=== PATIENT | male | born 1965 | race Caucasian/White ===

== ENCOUNTER 2017-12-12 08:11 | Inpatient (IN) | payer OTHER ==
[~2017-12-12] VITALS: Ht 177.8 cm; Wt 100.7 kg
[~2017-12-12 08:11] MED LIST: ASPIRIN EC81 MG PO; ATORVASTATIN CA20 MG PO; PLAVIX75 MG PO; WELLBUTRIN XL300 MG PO
[2017-12-12] MEDS ORDERED: NITROGLYCERIN 2% OINT 1 GM PKT TOP STA (08:45)
--- NOTE | 2017-12-12 09:09 | Diagnostic Imaging Report ---
PROCEDURE: Frontal and lateral views of the chest. COMPARISON: None available. INDICATIONS: CHEST PAIN FINDINGS: Lines/tubes: None. Lungs: The lungs are well inflated and clear. There is no evidence of pneumonia or pulmonary edema. Pleura: There is no pleural effusion or pneumothorax. Heart and mediastinum: The heart and the mediastinum are normal. Bones: No acute bony abnormality. IMPRESSION: No acute radiographic abnormality. Dictated by: Terence Velazquez M.D. on 12/12/2017 at 9:08 Electronically approved by: Terence Velazquez M.D. on 12/12/2017 at 9:08
[2017-12-12 09:44] LABS: BASOPHILS # (AUTO) 0.1 (0.0-0.1); BASOPHILS % 1.6 % (0.0-1.0); EOSINOPHILS # (AUTO) 0.1 (0.0-0.4); EOSINOPHILS % 2.9 % (0.0-6.0); HEMATOCRIT 45.3 % (38.2-49.6); LYMPHOCYTES # (AUTO) 1.4 (1.0-3.2); LYMPHOCYTES % 31.3 % (18.0-39.1); MEAN CORPUSCULAR HEMOGLOBIN 30.7 pg (28-32); MEAN CORPUSCULAR HGB CONC 35.3 g/dL (31-35); MEAN CORPUSCULAR VOLUME 86.9 fL (81-99); MONOCYTES # (AUTO) 0.4 (0.2-0.8); MONOCYTES % 8.9 % (4.4-11.3); NEUTROPHILS # (AUTO) 2.5 (2.1-6.9); NEUTROPHILS % 54.9 % (38.7-80.0); PLATELET COUNT 195 x10e3/uL (140-360); RED BLOOD COUNT 5.21 x10e6/uL (4.3-5.7); RED CELL DISTRIBUTION WIDTH 13.3 % (11.7-14.4)
[2017-12-12 10:12] LABS: INR 1.01; PROTHROMBIN TIME 12.5 seconds (11.9-14.5)
[2017-12-12 10:13] LABS: PARTIAL THROMBOPLASTIN TIME 27.9 seconds (23.8-35.5)
[2017-12-12 10:14] LABS: ALANINE AMINOTRANSFERASE 62 IU/L (0-55); ALBUMIN 4.1 g/dL (3.5-5.0); ALBUMIN/GLOBULIN RATIO 1.1 (0.8-2.0); ALKALINE PHOSPHATASE 116 IU/L (40-150); BLOOD UREA NITROGEN 18 mg/dL (7-26); BUN/CREATININE RATIO 19 (6-25); CALCIUM 8.6 mg/dL (8.4-10.2); CARBON DIOXIDE 22 mmol/L (22-29); CHLORIDE 107 mmol/L (98-107); CREATINE KINASE 208 IU/L (30-200); CREATININE, SERUM 0.95 mg/dL (0.72-1.25); EST GLOMERULAR FILTRATION RATE > 60 ML/MIN (60-); GLUCOSE 89 mg/dL (74-118); SODIUM 140 mmol/L (136-145)
[2017-12-12 10:23] LABS: BILIRUBIN,URINE NEGATIVE (NEGATIVE); KETONES,URINE NEGATIVE (NEGATIVE); LEUKOCYTE ESTERASE ,URINE NEGATIVE (NEGATIVE); NITRITE,URINE NEGATIVE (NEGATIVE); PROTEIN,URINE DIPSTICK NEGATIVE (NEGATIVE); URINE UROBILINOGEN 0.2 mg/dL (0.2 - 1)
[2017-12-12 10:28] LABS: CLARITY,URINE CLEAR (CLEAR); COLOR,URINE YELLOW (YELLOW)
[2017-12-12 10:41] LABS: EPITHELIAL CELLS,URINE RARE /LPF
[2017-12-12] MEDS ORDERED: NITROGLYCERIN 0.4 MG SUBL SL PRN (10:45)
[2017-12-12] MEDS ORDERED: ONDANSETRON HCL INJ 2 MG/ML VIAL IV PRN ×2 (10:45→14:15)
[2017-12-12] MEDS ORDERED: ASPIRIN 81 MG CHEW TAB PO ONE (10:45)
[2017-12-12] MEDS ORDERED: CLOPIDOGREL BISULFATE 75 MG TAB PO ONE (11:15)
[2017-12-12] MEDS: FAMOTIDINE 20 MG TAB PO SCH ×2 (11:21→21:24)
[2017-12-12] MEDS ORDERED: SODIUM CHLORIDE 0.9% 1000ML 1,000 ML IV SCH (11:45)
[2017-12-12] MEDS ORDERED: NITROGLYCERIN 2% OINT 1 GM PKT TOP SCH (12:00)
[2017-12-12 12:04] LABS: CREATINE KINASE MB 1.3 ng/mL (0-5.0)
[2017-12-12] MEDS ORDERED: LIDOCAINE HCL 2% LOCAL 20 ML VIAL PRN (12:12)
[2017-12-12] MEDS ORDERED: HEPARIN SOD/SOD CHLORIDE 2,000 ML PRN (12:12)
[2017-12-12] MEDS ORDERED: IOPAMIDOL 370 MG/ML 200 ML INFUS..BTL INJ PRN (12:12)
--- OUTSIDE RECORDS SUMMARY | 2017-12-12 12:37 | XMS REPORT ---
Author Author [facility] Address Unknown Phone Unavailable Care Team Providers Care High School Math Teacher Name Role Phone ANSLEY ZAMARRIPA Unavailable Unavailable Problems This patient has no known problems. Allergies, Adverse Reactions, Alerts This patient has no known allergies or adverse reactions. Medications This patient has no known medications. Results Test Description Test Time Test Comments Text Results Atomic Results Result Comments CHEST 2 VIEWS [place] [address] Patient Name: MERY LOWERY MR #: [id number] : 1965 Age/Sex: 52/M Req #: [id number] Adm Physician: Ordered by: ANSLEY ZAMARRIPA MD Report #: [id number] Location: ER Room/Bed: Procedure: [id number] DX/CHEST 2 VIEWS Exam Date: 12/12/17 Exam Time: 08 REPORT STATUS: Signed PROCEDURE: Frontal and lateral views of the chest. COMPARISON: None available. INDICATIONS: CHEST PAIN FINDINGS: Lines/tubes: None. Lungs: The lungs are well inflated and clear. There is no evidence of pneumonia or pulmonary edema. Pleura: There is no pleural effusion or pneumothorax. Heart and mediastinum: The heart and the mediastinum are normal. Bones: No acute bony abnormality. IMPRESSION: No acute radiographic abnormality. Dictated by: Hal Emery M.D. on 12/12/2017 at 9:08 Electronically approved by: Hal Emery M.D. on 12/12/2017 at 9:08 Dictated By : HAL EMERY MD 7 Transcribed By: ASCENCION on 12/12/17907 COPY TO: ANSLEY ZAMARRIPA MD
--- NOTE | 2017-12-12 12:41 | Consultation ---
DATE OF CONSULTATION: December 12, 2017 CARDIAC CONSULTATION REASON FOR CONSULTATION: Urgent consultation in a patient with repeated severe chest pain. HISTORY: This is a 52-year-old gentleman who is known with hypertension controlled by exercise and diet, coronary artery disease status post PCI of the LAD in 2012, hypercholesterolemia with INTOLERANCE TO ALL STATIN. Patient was in his usual status of health. He came to the emergency room because yesterday had 3 episodes of severe retrosternal chest pain radiating to his neck, to his back, to his arm, associated with diaphoresis. He thought probably he was having some problem there, but he said he was busy; so, he did not come to the emergency room. Today, this morning, he had another episode which is more severe, retrosternal and radiating to the back, associated with diaphoresis, radiating to his neck, and patient almost passed out. He came to the emergency room. His EKG showed nonspecific ST changes. First set of cardiac enzymes is normal. Urgent cardiac consultation is obtained. REVIEW OF SYSTEMS: CARDIAC: As per acute illness. PULMONARY: No cough. No hemoptysis. GI: No hematemesis. No melena. : No hematuria. No dysuria. NEUROMUSCULAR: No aches. No pain. NEUROLOGICAL: No headache. No seizure. HEMATOLOGICAL: No easy bruising. No bleeding. SOCIAL HISTORY: He lives by himself. He does not smoke. He is social alcohol drinker. He is a design engineering technician. CURRENT MEDICATION: Includes Plavix 75 mg a day. ALLERGIES: HE IS INTOLERANT TO ALL STATIN. PAST MEDICAL HISTORY: 1. Coronary artery disease, PCI of the LAD using a 2.75 x 22 stent finished with 3.25 noncompliant balloon. 2. Hypertension. 3. Left knee ACL repair. 4. Right Achilles tendon surgery. 5. Left shoulder tear surgery. FAMILY HISTORY: Father known with coronary artery disease, prior myocardial infarction and stents. Mother diabetic. One brother, one son, and both of them are healthy. PHYSICAL EXAMINATION: VITALS: Height of 5 feet 10 inches. Weight of 220 pounds. Blood pressure 130/70. Heart rate of 50. Respiratory rate of 18. HEENT: Pupils are equal, reactive. NECK: No elevation of jugular venous pulsation. No bruit. CHEST: Clear to auscultation and percussion. HEART: PMI 5th left intercostal space on 1st and 2nd heart sounds. ABDOMEN: Soft with good bowel sounds. No organomegaly. No abdominal bruits. EXTREMITIES: No cyanosis. No clubbing. No edema. NEUROLOGIC: No neurological deficits. LABORATORY DATA: EKG showing sinus bradycardia, RSR, in V1 nonspecific ST-T changes. First set of cardiac enzymes is normal. Sodium of 140. Potassium of 4. BUN of 18. Creatinine of 0.9. White blood cell count of 4.5. Hemoglobin of 16. Hematocrit is 45%. Platelet count of 195,000. IMPRESSION AND PLAN: 1. Acute coronary syndrome, impending myocardial infarction, in very unstable fashion in a patient with known coronary artery disease status post percutaneous coronary intervention. 2. Hypertension, on no medication, seems to be controlled with conservative approach. 3. Hypercholesterolemia, with INTOLERANCE TO STATIN. Will check another set of cardiac enzymes. Because of unstable nature of his symptoms, patient will be rushed to the cardiac wood preserving plant laborer for cardiac catheterization with possible intervention procedure. Risks, benefits, alternatives are discussed and explained. Job#: [id number] EV
[2017-12-12] MEDS ORDERED: FENTANYL CITRATE/PF 100MCG/2 ML INJ PRN (12:42)
[2017-12-12] MEDS ORDERED: MIDAZOLAM HCL 2 MG/2 ML VIAL PRN (12:42)
[2017-12-12] MEDS ORDERED: SODIUM CHLORIDE 0.9% 1000ML 1,000 ML PRN (12:42)
[2017-12-12] MEDS ORDERED: BIVALIRUDIN 250 MG/VIAL IV PRN (13:25)
[2017-12-12] MEDS ORDERED: SODIUM CHLORIDE 0.9% 50ML 50 ML PRN (13:26)
[2017-12-12] MEDS ORDERED: CLOPIDOGREL BISULFATE 75 MG TAB PRN (13:32)
[2017-12-12] MEDS ORDERED: ACETAMINOPHEN 325 MG TAB PO PRN (14:15)
[2017-12-12] MEDS ORDERED: HYDROCODONE/APAP 5MG-325MG TAB PO PRN (14:15)
--- NOTE | 2017-12-12 15:39 | Operative Report ---
DATE OF PROCEDURE: December 12, 2017 TITLE OF REPORT: Cardiac catheterization. INDICATIONS FOR STUDY: This is a 52-year-old gentleman with a history of hypertension, hypercholesterolemia, coronary artery disease with prior history of LAD stenting, who presents to this institution with chest pain typical of angina that is occurring at rest. It started today and was suggestive of paroxysmal angina pectoris. DESCRIPTION OF PROCEDURE: After risks, benefits, pros and cons of today's procedure were explained, the patient agreed to proceed. The patient was brought to the cardiac catheterization laboratory where the right groin was prepped and draped in the usual sterile fashion. One percent lidocaine solution was used to numb the right groin region. Access in the right femoral artery was obtained, and a 4-Bahraini femoral sheath was placed. Selective coronary angiography of the tribe left and right coronaries was performed with JL4 and 3DRC diagnostic catheters respectively. A 4-Bahraini angled pigtail catheter was placed in the ventricle for ventriculography and hemodynamic assessment of ventricular filling pressures. After noting severe branch disease in a mid-marginal branch that appeared to be high-grade stenosis, we decided to proceed with intervention. The 4-Bahraini femoral sheath was upsized to a 6-Bahraini femoral sheath. We took a 6-Bahraini XB LAD 3.5 guiding catheter and selected the left main coronary ostia. The Angiomax was given first for systemic anticoagulation. Utilizing a 0.014 [place] Flex guidewire, we were able to successfully place the wire into the mid marginal branch, which appears to be the OM-2 branch, which had the 95% ostial stenosis. We predilated the lesion with an Emerge 2.0 x 12 mm balloon deployed at 10 atmospheres of pressure. We then took a Synergy 2.25 x 12 mm drug-eluting stent and deployed that up to 12 atmospheres of pressure. Final angiography revealed zero percent residual stenosis, ADILENE-3 flow, and no complications. At the conclusion of the case, the guiding catheter was removed with a J wire. Then a femoral angiogram was performed revealing femoral artery stick. A 6-Bahraini Angio-Seal closure device was successfully deployed achieving hemostasis. COMPLICATIONS: None. ESTIMATED BLOOD LOSS: None. FINDINGS 1. The left main is very short and gives rise to an LAD and circumflex branch. 2. The mid-LAD has a previously placed stent in the proximal to the mid aspect of the vessel covering the origin of the 1st diagonal branch bifurcation. The diagonal branch has an 80% to 90% mid-body stenosis, and this vessel is about 2 mm in diameter. The remainder of this vessel is angiographically normal. 3. The left circumflex is large and dominant. It gives rise to a small anterolateral marginal branch with mild luminal irregularities. There is a 95% OM-2 branch, which is moderate in caliber. Then there is a larger posterolateral marginal branch which is largely angiographically normal followed by 30% disease in the distal circumflex as it wraps around the AV groove followed by several more posterolateral marginal branches and terminates into a moderate caliber left PDA. 4. The RCA is a small and nondominant vessel. 5. Left ventricular ejection fraction is 65% with normal wall motion. Diastolic pressure is 12 mmHg. There is no significant LV to aortic pullback gradient. INTERVENTION SUMMARY: Successful treatment of the 95% ostial OM-2 lesion with implantation of a Synergy 2.25 x 12 mm drug-eluting stent resulting in zero percent residual stenosis, ADILENE-3 flow and no complications. PLAN/RECOMMENDATIONS 1. Aspirin and Plavix therapy. 2. Statin therapy. 3. Aggressive risk factor modification and medical therapy. 4. Overnight observation. If the patient is doing well, likely discharge home by tomorrow. Job#: [id number] ALICIA
[2017-12-12] MEDS: SODIUM CHLORIDE 0.9% 1000ML 1,000 ML IV SCH (15:40)
[2017-12-12 16:33] VITALS: BP 141/94
[2017-12-12 16:48] VITALS: BP 141/94
[2017-12-12] MEDS: METOPROLOL TARTRATE 25 MG TAB PO SCH (18:08)
[2017-12-12 20:00] VITALS: BP 155/101
[2017-12-12 20:11] LABS: CREATINE KINASE MB 1.3 ng/mL (0-5.0)
[2017-12-12] MEDS ORDERED: ATORVASTATIN 20 MG TAB PO SCH (21:00)
[2017-12-12] MEDS ORDERED: ZOLPIDEM TARTRATE 5 MG TAB PO PRN (21:00)
[2017-12-13] VITALS: BP 146/85
[2017-12-13 00:38] VITALS: BP 146/85
[2017-12-13] MEDS: SODIUM CHLORIDE 0.9% 1000ML 1,000 ML IV SCH ×2 (01:04→01:05)
[2017-12-13 04:00] VITALS: BP 145/77
[2017-12-13 06:02] LABS: BASOPHILS # (AUTO) 0.1 (0.0-0.1); BASOPHILS % 1.1 % (0.0-1.0); EOSINOPHILS # (AUTO) 0.2 (0.0-0.4); EOSINOPHILS % 3.3 % (0.0-6.0); HEMATOCRIT 44.5 % (38.2-49.6); HEMOGLOBIN 15.8 g/dL (14.0-18.0); LYMPHOCYTES # (AUTO) 1.5 (1.0-3.2); LYMPHOCYTES % 22.8 % (18.0-39.1); MEAN CORPUSCULAR HEMOGLOBIN 30.3 pg (28-32); MEAN CORPUSCULAR HGB CONC 35.5 g/dL (31-35); MEAN CORPUSCULAR VOLUME 85.2 fL (81-99); MONOCYTES # (AUTO) 0.5 (0.2-0.8); MONOCYTES % 7.3 % (4.4-11.3); NEUTROPHILS # (AUTO) 4.3 (2.1-6.9); NEUTROPHILS % 65.2 % (38.7-80.0); PLATELET COUNT 175 x10e3/uL (140-360); RED BLOOD COUNT 5.22 x10e6/uL (4.3-5.7)
[2017-12-13 06:24] LABS: ALANINE AMINOTRANSFERASE 55 IU/L (0-55); ALBUMIN 3.7 g/dL (3.5-5.0); ALKALINE PHOSPHATASE 82 IU/L (40-150); ANION GAP 12.9 mmol/L (8-16); BLOOD UREA NITROGEN 15 mg/dL (7-26); BUN/CREATININE RATIO 15 (6-25); CALCIUM 8.5 mg/dL (8.4-10.2); CARBON DIOXIDE 22 mmol/L (22-29); CHLORIDE 108 mmol/L (98-107); CHOL/HDL RATIO 7.7 (3.9-4.7); CHOLESTEROL 268 MD/DL (0-199); EST GLOMERULAR FILTRATION RATE > 60 ML/MIN (60-); GLUCOSE 92 mg/dL (74-118); HDL CHOLESTEROL 35 MG/DL (40-60); POTASSIUM 3.9 mmol/L (3.5-5.1); SODIUM 139 mmol/L (136-145); TRIGLYCERIDES 433 MG/DL (0-149)
[2017-12-13 08:00] VITALS: BP 150/88
[2017-12-13] MEDS ORDERED: ASPIRIN 325 MG TAB PO SCH (09:00)
[2017-12-13] MEDS ORDERED: CLOPIDOGREL BISULFATE 75 MG TAB PO SCH (09:00)
[2017-12-13] MEDS ORDERED: ASPIRIN 81 MG ENTERIC COATED PO SCH (09:00)
[2017-12-13] MEDS: METOPROLOL TARTRATE 25 MG TAB PO SCH (09:38)
[2017-12-13] MEDS: FAMOTIDINE 20 MG TAB PO SCH (09:38)
== END 2017-12-13 13:16 | disposition left against medical advice (07) | DRG 247 ==
LOC: ER 08:18 → CATH LAB 12:35 → MED/SURG2 14:45
PROVIDERS: ADMIT Internal Medicine; ATTEND Internal Medicine
PROC: 027034Z Dilation of Coronary Artery, One Artery with Drug-eluting Intraluminal Device, Percutaneous Approach (ICD-10-PCS; principal; 2017-12-12)
PROC: 4A023N7 Measurement of Cardiac Sampling and Pressure, Left Heart, Percutaneous Approach (ICD-10-PCS; 2017-12-12)
PROC: B2111ZZ Fluoroscopy of Multiple Coronary Arteries using Low Osmolar Contrast (ICD-10-PCS; 2017-12-12)
PROC: B2151ZZ Fluoroscopy of Left Heart using Low Osmolar Contrast (ICD-10-PCS; 2017-12-12)
DX: I25.110 Atherosclerotic heart disease of native coronary artery with unstable angina pectoris (principal); I10 Essential (primary) hypertension; E78.5 Hyperlipidemia, unspecified; F41.9 Anxiety disorder, unspecified; Z95.5 Presence of coronary angioplasty implant and graft; Z28.21 Immunization not carried out because of patient refusal; Z79.82 Long term (current) use of aspirin; Z79.02 Long term (current) use of antithrombotics/antiplatelets
CPT/HCPCS: 36140; 36415; 71046; 77002; 80053; 80061; 81001; 82550; 82553; 83036; 84484; 85025; 85610; 85730; 87086; 92920; 93005; 93452; 93458; 99284; C1766; C9600; J0583; J2001; J2250; J7030; Q9967

== ENCOUNTER 2019-05-08 11:05 | Observation (INO) | payer OTHER ==
[~2019-05-08] VITALS: Ht 177.8 cm; Wt 136.1 kg
--- OUTSIDE RECORDS SUMMARY | 2019-05-08 11:08 | XMS REPORT | Clinical Summary ---
Author Author [facility] Address Unknown Phone Unavailable Care Team Providers Care Policy Intern Name Role Phone Armando Juarez MD PCP Allergies No Known Allergies Medications End Date Status Medication Sig Dispensed Refills Start Date Active buPROPion XL (WELLBUTRIN Take 300 mg 0 XL) 300 MG 24 hr tablet by mouth every morning. Active clopidogrel (PLAVIX) 75 Take 75 mg by 0 mg tablet mouth every morning. Active sertraline (ZOLOFT) 100 Take 200 mg 0 MG tablet by mouth every morning. Active Problems Problem Noted Date Depression 01/28/2018 Dyslipidemia 01/28/2018 Hypertriglyceridemia 01/28/2018 Chest pain 01/15/2018 Social History Date Tobacco Use Types Packs/Day Years Used Never Smoker Smokeless Tobacco: Never Used Alcohol Use Drinks/Week oz/Week Comments Yes 3/7 days per week Sex Assigned at Date Recorded Not on file Industry Job Start Date Occupation Not on file Not on file Not on file Travel End Travel History Travel Start No recent travel history available. Last Filed Vital Signs Not on file Plan of Treatment Health Maintenance Due Date Last Done Comments COLONOSCOPY SCREENING 2014 SHINGLES VACCINES (#1) 2014 INFLUENZA VACCINE 05/23/2019 Results Not on fileafter 05/07/2018 Insurance Type Payer Benefit Subscriber ID Effective Phone Address Plan / Dates Group HMO AETNA AETNA xxxxxxxxxx 2000- HMO,POS,EP Present O, MC/EC Advance Directives Patient has advance care planning documents on file. For more information, pleas e contact: Jesus Rea [address] [facility] [place] [address]
[2019-05-08 11:24] LABS: BASOPHILS # (AUTO) 0.1 (0.0-0.1); EOSINOPHILS # (AUTO) 0.1 (0.0-0.4); EOSINOPHILS % 2.9 % (0.0-6.0); HEMATOCRIT 45.3 % (38.2-49.6); HEMOGLOBIN 15.9 g/dL (14.0-18.0); LYMPHOCYTES # (AUTO) 1.6 (1.0-3.2); MEAN CORPUSCULAR HEMOGLOBIN 30.6 pg (28-32); MEAN CORPUSCULAR HGB CONC 35.1 g/dL (31-35); MEAN CORPUSCULAR VOLUME 87.1 fL (81-99); MONOCYTES # (AUTO) 0.3 (0.2-0.8); MONOCYTES % 6.9 % (4.4-11.3); NEUTROPHILS # (AUTO) 2.3 (2.1-6.9); NEUTROPHILS % 51.8 % (38.7-80.0); PLATELET COUNT 184 x10e3/uL (140-360); RED CELL DISTRIBUTION WIDTH 13.2 % (11.7-14.4)
[2019-05-08] MEDS ORDERED: ASPIRIN 81 MG CHEW TAB PO ONE ×2 (11:30→12:30)
[2019-05-08 11:37] LABS: INR 0.86; PROTHROMBIN TIME 12.2 seconds (11.9-14.5)
[2019-05-08 11:38] LABS: PARTIAL THROMBOPLASTIN TIME 28.8 seconds (23.8-35.5)
[2019-05-08 11:45] LABS: ALANINE AMINOTRANSFERASE 64 IU/L (0-55); ALBUMIN/GLOBULIN RATIO 1.1 (0.8-2.0); ALKALINE PHOSPHATASE 97 IU/L (40-150); BLOOD UREA NITROGEN 16 mg/dL (7-26); BUN/CREATININE RATIO 20 (6-25); CALCIUM 8.8 mg/dL (8.4-10.2); CARBON DIOXIDE 22 mmol/L (22-29); CHLORIDE 106 mmol/L (98-107); CREATINE KINASE 159 IU/L (30-200); EST GLOMERULAR FILTRATION RATE > 60 ML/MIN (60-); GLUCOSE 86 mg/dL (74-118); MAGNESIUM 2.3 MG/DL (1.3-2.1); SODIUM 139 mmol/L (136-145)
--- NOTE | 2019-05-08 13:25 | Diagnostic Imaging Report ---
EXAMINATION: CHEST 2 VIEWS INDICATION: Chest pain. ^chest pain ^[id number] ^1145 ^Y COMPARISON: None FINDINGS: TUBES and LINES: None. LUNGS: Lungs are well inflated. Lungs are clear. There is no evidence of pneumonia or pulmonary edema. PLEURA: No pleural effusion or pneumothorax. HEART AND MEDIASTINUM: The cardiomediastinal silhouette is unremarkable. BONES AND SOFT TISSUES: No acute osseous lesion. Soft tissues are unremarkable. UPPER ABDOMEN: No free air under the diaphragm. IMPRESSION: No acute thoracic abnormality. Signed by: Dr. Samson Figueroa M.D. on 05/08/2019 1:22 PM
--- OUTSIDE RECORDS SUMMARY | 2019-05-08 13:27 | XMS REPORT | Clinical Summary ---
Author Author [facility] Address Unknown Phone Unavailable Care Team Providers Care Construction Director Name Role Phone Armando Juarez MD PCP [...] more information, pleas e contact: Jesus Rea [phone] [facility] [place] [address]
[2019-05-08] MEDS ORDERED: SODIUM CHLORIDE 0.9% 1000ML 1,000 ML IV SCH ×2 (13:50→18:34)
--- NOTE | 2019-05-08 14:04 | NUR ---
report called to SHELIA Cartwright
[2019-05-08 14:40] VITALS: BP 148/91
--- NOTE | 2019-05-08 14:40 | NUR ---
PATIENT RECEIVED FROM ER PER STRETCHER. ALERT AND ORIENTED X 3. SKIN WARM AND DRY TO TOUCH, RESPIRATION EVEN AND UNLABORED. DENIED CHEST PAIN AT THIS TIME. ABDOMEN SOFT AND NON DISTENDED, LAST BM TODAY. TELEMETRY BOX [address], YELLOW SOCKS APPLIED. PATIENT ORIENTED TO SURROUNDINGS. BED IN LOWER POSITION, CALL LIGHT AT REACH. INSTRUCTED TO CALL FOR ASSISTANCE NEEDED.
[2019-05-08] MEDS ORDERED: VERAPAMIL HCL 2.5 MG/ML 2 ML VIAL ONE (16:05)
[2019-05-08] MEDS ORDERED: HEPARIN SOD (PORCINE) 1000 UNIT/ML 30ML ONE (16:05)
[2019-05-08] MEDS ORDERED: HEPARIN SOD/SOD CHLORIDE 2,000 ML ONE (16:06)
[2019-05-08] MEDS ORDERED: MIDAZOLAM HCL 2 MG/2 ML VIAL ONE (16:06)
[2019-05-08] MEDS ORDERED: FENTANYL CITRATE/PF 100MCG/2 ML INJ ONE (16:06)
[2019-05-08] MEDS ORDERED: LIDOCAINE HCL 2% LOCAL 20 ML VIAL ONE ×2 (16:06→17:49)
[2019-05-08] MEDS ORDERED: SODIUM CHLORIDE 0.9% 1000ML 1,000 ML ONE (16:07)
[2019-05-08] MEDS ORDERED: IOPAMIDOL 370 MG/ML 200 ML INFUS..BTL INJ ONE (16:07)
[2019-05-08] MEDS ORDERED: NITROGLYCERIN/D5W 200 MCG/ML 0 ML ONE (16:07)
--- NOTE | 2019-05-08 17:22 | NUR ---
PATIENT OFF UNIT TO INSPECTOR HOT FORGINGS.
[2019-05-08] MEDS ORDERED: SODIUM CHLORIDE 0.9% 50ML 0 ML ONE (17:55)
[2019-05-08] MEDS ORDERED: EPTIFIBATIDE 75mg 100ML 0 ML ONE (17:55)
[2019-05-08] MEDS ORDERED: BIVALRIUDIN 250 MG/VIAL VIAL IV ONE (17:55)
[2019-05-08] MEDS ORDERED: EPTIFIBATIDE 0 ML ONE (17:55)
--- NOTE | 2019-05-08 18:40 | NUR ---
Report provided to Chay RN, review of procedural findings and medications given. Patient drowsy, easily aroused. maintains airway and room air saturations of 98-99%. No gross issues of pressure, pain, pallor or dysrhythmia. IV site patent with NS 0.9% at KVO by dial-flow. patient hemodynamically stable with hemostasis left groin dressing CDI w/o s/s of bleeding. patient transferred to [facility] under own strength w/o incident. placed back on portable telemetry and transported to [address] [place] [address] procedure: Diagnostic LHC, left ventriculogram and coronary angiography Sheath puller: Sea RTr 20 min hold Meds Given Intra-Procedure Sedatives Versed - 2 mg Fentanyl - 50 mcg Fluids Input - 200 ml Output - dtv Contrast Isovue 370 - 90 ml Other Meds NA
--- NOTE | 2019-05-08 18:43 | NUR ---
PATIENT BACK TO UNIT FROM REVERSAL PRINT INSPECTOR. ALERT AND VERBALLY RESPONSIVE. DENIED PAIN AT THIS TIME. DRESSING DRY AND INTACT TO LEFT GROIN, NO HEMATOMA NOTED. PATIENT ABLE TO WIGGLE TOES. ON BED REST WITH LEG STRAIGHT TILL 2300. V/S 96.1-55-18-142/89 AND 96% ON RA. BED IN LOWER POSITION AND LOCKED, CALL LIGHT AT REACH.
[2019-05-08] MEDS ORDERED: MORPHINE SULFATE INJ 4 MG/ML INJ 1ML IV PRN (18:45)
[2019-05-08] MEDS ORDERED: ONDANSETRON HCL INJ 2MG/ML 2ML 2 MG/ML VIAL IV PRN (18:45)
[2019-05-08] MEDS ORDERED: ACETAMINOPHEN 325 MG TAB PO PRN (18:45)
[2019-05-08] MEDS ORDERED: HYDROCODONE/APAP 5MG-325MG TAB PO PRN (18:45)
[2019-05-08 19:15] VITALS: BP 140/86
--- NOTE | 2019-05-08 19:18 | NUR ---
PT IS RESTING IN BED. RESPIRATION IS EVEN AND UNLABORED, NO DISTRESS NOTED. BED IN THE LOWEST POSITION, LOCKED, AND CALL LIGHT WITHIN REACH. WILL CONTINUE TO MONITOR.
--- NOTE | 2019-05-08 19:22 | Operative Report ---
DATE OF PROCEDURE: 05/08/2019 SURGEON: Olayinka Manriquez MD PROCEDURES PERFORMED: 1. Left heart cardiac catheterization, coronary angiography. 2. Left ventriculography. INDICATION FOR STUDY: A 53-year-old gentleman, history of hypertension, hypercholesteremia, coronary artery disease with prior history of LAD, PCI and OM2 PCI in the remote past, presents to this institution with ongoing relentless chest pressure, tightness, heaviness. States similar to his previous ACS pain and concerning for unstable angina, class 4 symptoms. DESCRIPTION OF PROCEDURE: After risks, benefits, pros and cons of today's procedure explained, the patient agreed to proceed. The patient was brought to the cardiac catheterization laboratory in urgent basis, where the groins were prepped and draped in usual sterile fashion. A 1% lidocaine solution was used to numb the left groin region, access to the left femoral artery was obtained and a 4-Tamazight femoral sheath was placed. Selective coronary angiography of the cherokee left and right coronary artery was performed with JL4 and 3DRC diagnostic catheters respectively. Angled pigtail catheter was placed in the ventricle for ventriculography and hemodynamic assessment of ventricular filling pressures. After noting no clear-cut culprit lesion, and no critical disease or severe disease we decided to proceed with. We decided to conclude the case. The 4-Tamazight femoral sheath was removed and manual compression was applied achieving hemostasis. COMPLICATIONS: None. ESTIMATED BLOOD LOSS: Minimal. FINDINGS: 1. Left main is very short, angiographically normal, gives rise to an LAD and circumflex branch. 2. LAD has a proximal mid LAD stent that is patent jailing the 1st two diagonal branches. The 2nd diagonal branch was a 1.5 mm vessel, has an 80% mid stenosis. 3. Left circumflex artery is dominant, gives rise to several marginal branches. OM2 branch has a previously placed stent that is patent. However, in the ostial aspect of this vessel, there is a 40% stenosis. The OM3 branch is a large posterolateral marginal branch. There are two smaller posterolateral marginal branches and then the very distal aspect of the circumflex artery just as it enters the left PDA. There is a 50% stenosis. 4. The RCA is small, nondominant and is angiographically normal. 5. Left ventricular ejection fraction is 55% with end-diastolic pressure of 18 mmHg. There is no significant LV to aortic pullback gradient. PLAN/RECOMMENDATIONS: 1. Adjust aggressive risk factor modification medical therapy. 2. Six hour bedrest. 3. Overall, the patient's anatomy does not show any severe disease and readily amenable for PCI. We will just recommend medical therapy. MD TEN Armando/SOFIA /[id number]
--- NOTE | 2019-05-08 19:32 | Consultation ---
DATE OF CONSULTATION: 05/08/2019 REASON FOR CONSULTATION: Unstable angina. CHIEF COMPLAINT: Chest pain. HISTORY OF PRESENT ILLNESS: Mr. Baird is a 53-year-old gentleman with past medical history of hypertension, hypercholesteremia, coronary artery disease with prior history of LAD, PCI, and circumflex PCI as well with left dominant circulation. The patient was in his usual state of health up until a couple of days ago when he developed new onset of chest pain as he describes a substernal chest pressure sensation, [id number] in nature, it waxes and wanes, and is becoming more frequent over the last previous days. He endorses compliance with his anti-platelet therapy, but reports that he has been in and out of town working, and finally he is back in town and came to the emergency room for further care and management. He reports that the substernal chest pain radiates to his neck and he at times break down into a sweat. He reports that this pain quality is similar to what happened back in November 2017, where he ended up having his circumflex artery stented. In the emergency room, his 1st set of enzymes are negative. His EKG reveals T-wave inversions in the lateral leads. PAST MEDICAL HISTORY: 1. Hypercholesterolemia with statin intolerance. 2. Coronary artery disease with prior history of LAD, PCI, and circumflex PCI most recently in November 2012. PAST SURGICAL HISTORY: 1. History of left knee ACL repair. 2. History of right Achilles tendon surgery. 3. History of left shoulder tear surgery. FAMILY HISTORY: Father known with prior RI and coronary artery disease in his 60s. Mother diabetic. Otherwise, no other family history of coronary artery disease. SOCIAL HISTORY: He is a lifelong nonsmoker. Denies any alcohol or illicit drug use. He is a air technician. ALLERGIES: INTOLERANCE TO ALL STATINS. HOME MEDICATIONS: Only currently taking aspirin 81 mg daily and Plavix 75 mg daily, has refused to take beta-tha and again I talked about statin therapy and refused to take that medications. REVIEW OF SYSTEMS: GENERAL: Denies any fevers, chills, or any weight changes. HEENT : No headaches, visual complaints, sore throat, or stuffy nose. RESPIRATORY: Denies any pleuritic chest pain, has exertional dyspnea, that is relatively consistent with his chest pain symptoms. No cough. CARDIOVASCULAR: As per HPI. GI: Denies any abdominal pain, bright red blood per rectum, melena, or hematemesis. HEMATOLOGY: Positive for easy bruising. No bleeding. GI: Denies any abdominal pain. Positive for nausea. Denies any bright red blood per rectum, melena, or hematemesis. : Denies any dysuria, pyuria, or change in urinary frequency. MUSCULOSKELETAL: Has chronic back pain and some arthritic type issues. HEME: Positive for easy bruising. ID: No infectious issues. NEUROLOGIC: Denies any focal weakness, numbness, tingling, seizures, headache, history of TIA, or stroke. Remainder of review of systems negative, otherwise as mentioned. PHYSICAL EXAMINATION: VITAL SIGNS: Height of 70 inches, weight of 222 pounds, BMI is 31.9, temperature of 96.9, pulse of 58, respiratory rate 14, blood pressure 125/79, and O2 saturation 99% on room air. GENERAL: This is a well-nourished, well-developed gentleman, who is currently in no apparent distress. HEENT: Normocephalic, atraumatic. Pupils are equal, round, and reactive to light. Extraocular movements are intact. Oropharynx is clear. NECK: No elevation of jugular venous pulsation. No carotid bruits. CARDIOVASCULAR: Regular rate and rhythm. Normal S1, S2. Soft 1/6 systolic murmur at the left lower sternal border. LUNGS: Largely clear to auscultation bilaterally. ABDOMEN: Soft, nontender, nondistended. Normoactive bowel sounds. No hepatosplenomegaly. BACK: No costovertebral angle tenderness. EXTREMITIES: Warm with 1 to 2+ bilateral femoral pulses, 1+ pedal pulses. No edema. NEUROLOGIC: He is alert and oriented x3. Cranial nerves II through XII are intact. Strength is 5/5. Grossly nonfocal. PSYCH: Normal fluent speech. Appropriate affect. No anxiety or delusions. LABORATORY DATA: White count of 4.5, hemoglobin 15.9, hematocrit of 45.3, and platelets of 184. Sodium 139, potassium 4, chloride 106, bicarb 22, BUN 16, creatinine 0.8, glucose of 86, calcium of 8.8, AST 33, ALT 64, alkaline phosphatase 97, total protein of 7.5, albumin of 4.0. BNP is 19. Troponin is 0.003. EKG reveals sinus rhythm. T-wave inversion in the lateral precordial leads. DIAGNOSES: 1. Coronary artery disease with escalating chest pain symptoms concerning for unstable angina pectoris and gentleman who has a known PCI to the LAD and circumflex arteries and has a left dominant circulation. 2. Hypercholesteremia with statin intolerance. 3. Prior history of stenting to coronary artery disease as above. PLAN AND RECOMMENDATIONS: 1. From a cardiovascular standpoint, we had a long discussion with the patient in terms of differential diagnosis, etc. He is adamant this is similar to his typical angina pain and is requesting a repeat heart catheterization, which seems reasonable given lack of good alternative diagnosis. 2. The patient understands the cardiac catheterization risks, benefits, and agrees to proceed. 3. We will continue dual anti-platelet therapy. 4. We will continue to follow and monitor this patient. MD TEN Armando/SOFIA /[id number]
[2019-05-08 20:00] VITALS: BP 140/86
[2019-05-08] MEDS: ATORVASTATIN 20 MG TAB PO SCH ×2 (21:00→21:09)
[2019-05-08] MEDS: PANTOPRAZOLE SOD 40 MG TABEC PO SCH (21:09)
[2019-05-08] MEDS: METOCLOPRAMIDE HCL 10 MG TAB PO SCH ×2 (21:09→22:15)
[2019-05-09] VITALS: BP 119/77
[2019-05-09 04:00] VITALS: BP 127/78
[2019-05-09 06:08] LABS: BASOPHILS # (AUTO) 0.1 (0.0-0.1); BASOPHILS % 1.2 % (0.0-1.0); EOSINOPHILS # (AUTO) 0.2 (0.0-0.4); EOSINOPHILS % 3.7 % (0.0-6.0); HEMATOCRIT 44.7 % (38.2-49.6); HEMOGLOBIN 15.5 g/dL (14.0-18.0); LYMPHOCYTES # (AUTO) 1.6 (1.0-3.2); LYMPHOCYTES % 31.1 % (18.0-39.1); MEAN CORPUSCULAR HEMOGLOBIN 30.6 pg (28-32); MEAN CORPUSCULAR HGB CONC 34.7 g/dL (31-35); MEAN CORPUSCULAR VOLUME 88.3 fL (81-99); MONOCYTES # (AUTO) 0.4 (0.2-0.8); MONOCYTES % 8.5 % (4.4-11.3); NEUTROPHILS # (AUTO) 2.8 (2.1-6.9); NEUTROPHILS % 55.1 % (38.7-80.0); PLATELET COUNT 168 x10e3/uL (140-360); RED BLOOD COUNT 5.06 x10e6/uL (4.3-5.7); RED CELL DISTRIBUTION WIDTH 13.3 % (11.7-14.4)
[2019-05-09 06:41] LABS: ALANINE AMINOTRANSFERASE 59 IU/L (0-55); ALBUMIN 3.7 g/dL (3.5-5.0); ALBUMIN/GLOBULIN RATIO 1.1 (0.8-2.0); ALKALINE PHOSPHATASE 86 IU/L (40-150); ANION GAP 12.4 mmol/L (8-16); BLOOD UREA NITROGEN 17 mg/dL (7-26); BUN/CREATININE RATIO 20 (6-25); CALCIUM 8.5 mg/dL (8.4-10.2); CARBON DIOXIDE 24 mmol/L (22-29); CHLORIDE 107 mmol/L (98-107); CREATININE, SERUM 0.87 mg/dL (0.72-1.25); EST GLOMERULAR FILTRATION RATE > 60 ML/MIN (60-); GLUCOSE 84 mg/dL (74-118); POTASSIUM 4.4 mmol/L (3.5-5.1); SODIUM 139 mmol/L (136-145)
[2019-05-09 06:55] LABS: CHOL/HDL RATIO 7.2 (3.9-4.7); CHOLESTEROL 267 MD/DL (0-199); HDL CHOLESTEROL 37 MG/DL (40-60); TRIGLYCERIDES 517 MG/DL (0-149)
[2019-05-09 07:01] LABS: THYROID STIMULATING HORMONE 2.971 uIU/mL (0.350-4.940)
--- NOTE | 2019-05-09 07:23 | NUR ---
PATIENT ASSISTED TO THE RESTROOM AND BACK TO BED. IV FLUID INFUSING ORDERED. DRESSING DRY AND INTACT TO LEFT GROIN, NO HEMATOMA NOTED. BED IN LOWER POSITION, CALL LIGHT AT REACH.
[2019-05-09 07:25] VITALS: BP 128/77
[2019-05-09] MEDS ORDERED: LIPITOR40 MG PO (07:30)
[2019-05-09] MEDS: PANTOPRAZOLE SOD 40 MG TABEC PO SCH (07:56)
[2019-05-09] MEDS: METOCLOPRAMIDE HCL 10 MG TAB PO SCH ×2 (07:56→11:30)
[2019-05-09 08:12] VITALS: BP 128/77
[2019-05-09] MEDS ORDERED: ASPIRIN 325 MG TAB EC PO SCH (09:00)
[2019-05-09] MEDS ORDERED: CLOPIDOGREL BISULFATE 75 MG TAB PO SCH (09:00)
--- NOTE | 2019-05-09 11:28 | NUR ---
PATIENT ASSISTED WITH SHOWER, BACK TO BED WITH CALL LIGHT AT REACH.
[2019-05-09 11:50] VITALS: BP 150/73
--- NOTE | 2019-05-09 14:23 | NUR ---
SPOKE WITH DR MASCORRO REGARDING DISCHARGE PLANNING. ORDER RECEIVED TO DISCHARGE PATIENT HOME.
--- NOTE | 2019-05-09 14:40 | NUR ---
PATIENT DISCHARGED HOME. DISCHARGE INSTRUCTIONS, PRESCRIPTION, AND FOLLOW UP GIVEN TO PATIENT, HE VERBALIZED UNDERSTANDING. IV TI RIGHT AC REMOVED WITH TIP INTACT. ALL PERSONAL ITEMS TAKEN WITH PATIENT. REFUSED WHEEL CHAIR, BUT WAS ACCOMPANIED BY HOSPITAL STAFF TO FRONT LOBBY IN STABLE CONDITION.
--- NOTE | 2019-05-10 00:08 | Discharge Summary ---
ADMISSION DIAGNOSES: Chest pain, ruled out myocardial infarction; gastritis; hypertension with coronary artery disease. DISCHARGE DIAGNOSES: Chest pain, ruled out myocardial infarction; gastritis; hypertension with coronary artery disease. No myocardial infarction. HISTORY: The patient has a history of hypertension, hyperlipidemia, CAD with 2 stents. PAST SURGICAL HISTORY: Back surgery, shoulder surgery, knee surgery, heart catheterization x3 with stents in 2012 and 2018. FAMILY HISTORY: Noncontributory. SOCIAL HISTORY: The patient admits to occasional alcohol use. HOSPITAL COURSE: A 53-year-old male with history of CAD, complains of chest pain for 1 day, which was retrosternal and epigastric. He denies palpitations, shortness of breath, and diaphoresis. On admission, troponin was 0.003. Chest x-ray was negative. The patient was taken to the [facility], which did not show any severe disease. The patient will discharge home on regular medications of aspirin and Plavix and his Lipitor will be increased due to his elevated triglycerides and cholesterol level. The patient understands discharge instructions and agrees the plan. He will follow up with primary care and Cardiology in 1 to 2 weeks. Dictated by Cheri Ndiaye NP MD LISA Anaya/SOFIA /[id number]
== END 2019-05-09 14:40 | disposition home or self-care (01) ==
LOC: ER 11:05 → ERHOLD 11:44 → MED/SURG3 14:20
PROVIDERS: ADMIT Internal Medicine; ATTEND Internal Medicine
DX: I25.110 Atherosclerotic heart disease of native coronary artery with unstable angina pectoris (principal); I10 Essential (primary) hypertension; I34.0 Nonrheumatic mitral (valve) insufficiency; I07.1 Rheumatic tricuspid insufficiency; E78.5 Hyperlipidemia, unspecified; Z95.5 Presence of coronary angioplasty implant and graft; K29.70 Gastritis, unspecified, without bleeding; Z82.49 Family history of ischemic heart disease and other diseases of the circulatory system
CPT/HCPCS: 36415 ×2; 71046; 80053 ×2; 80061; 82550; 82553; 83735; 83880; 84443; 84484; 85025 ×2; 85610; 85730; 93005; 93306; 93458; 99284; C1766; C1769; G0378 ×2; J2001; J2250; J3010; J7030 ×2; J8597; Q9967; S0164 ×2; J0583; J1327; J1644